=== PATIENT | male | born 1995 | race American Indian/Alaskan Native ===

== ENCOUNTER 2025-03-22 18:24 | Emergency (ER) | payer BC ==
[~2025-03-22] VITALS: Ht 193 cm; Wt 85.2 kg
[2025-03-22 19:39] LABS: BASOPHILS 0.6 % (0.2-1.2); EOSINOPHILS 2.9 % (0.8-7.0); LYMPHOCYTES 20.9 % (21.8-53.1); MCH 28.6 PG (25.7-32.2); MCHC 33.1 g/dL (32.3-36.5); MCV 86.4 fL (79.0-92.2); MONOCYTES 10.7 % (5.3-12.2); NEUTROPHILS 64.7 % (34.0-67.9); RBC 5.00 M/uL (4.63-6.08)
[2025-03-22 20:00] LABS: ALT (SGPT) 20.0 U/L (14-59); AST (SGOT) 17.0 U/L (15-37); GLOMERULAR FILTRATION RATE,EST 108.0 mL/min (>60); PROTEIN, TOTAL 8.3 g/dL (6.4-8.2); UREA NITROGEN 9.0 mg/dL (7-18)
[2025-03-22 21:25] LABS: LACTIC ACID, BLOOD 0.7 mmol/L (0.4-2.0)
[2025-03-22] MEDS ORDERED: CEPHALEXIN500 M1 PO (21:55)
[2025-03-22] MEDS ORDERED: CEPHALEXIN MONOHYDRATE 500 MG HOME.PACK PO ONE (22:00)
[2025-03-22] MEDS ORDERED: HYDROCODONE BIT/ACETAMINOPHEN 5/325 MG 1 TAB HOME.PACK PO ONE (22:00)
[2025-03-22 22:10] VITALS: BP 99/50
== END 2025-03-22 22:12 | disposition home or self-care (01) ==
LOC: ED 18:24
PROVIDERS: Internal Medicine
DX: L03.116 Cellulitis of left lower limb (principal)
CPT/HCPCS: 36415; 80053; 83605; 85025; 87040; 96365; 99283-25; A9270; J0696

== ENCOUNTER 2025-06-05 10:58 | Day surgery (SDC) | payer BC ==
[~2025-06-05] VITALS: Ht 193 cm; Wt 86.0 kg
[~2025-06-05 10:58] MED LIST: CEPHALEXIN500 M1 PO; IBLOOD GLUCOSE TEST STRIP 1 EA TEST VI PRN; LACTATED RINGER'S 1,000 ML IV SCH; LIDOCAINE HCL 1% 5 ML SDV INJ ONE
[2025-06-05 11:10] VITALS: BP 132/70
[2025-06-05] MEDS ORDERED: LIDOCAINE HCL 2% 5 ML SDV ONE (11:26)
--- NOTE | 2025-06-05 13:07 | NUR ---
06/05/25 1307 Muade Gomez 1302-PATIENT ARRIVED TO PACU ON 2L NC RR EVEN NONAROUSABLE LAYING LEFT LATERAL ABDOMEN SOFT IVF INFUSING. SINUS BRADYCARDIA HR 50'S
[2025-06-05 13:52] VITALS: BP 122/73
== END 2025-06-05 14:00 | disposition home or self-care (01) ==
LOC: DS 10:58 → OPS 10:58 → DS 12:30 → OPS 12:30
PROVIDERS: ATTEND Surgery
PROC: 0DBL8ZX Excision of Transverse Colon, Via Natural or Artificial Opening Endoscopic, Diagnostic (ICD-10-PCS; 2025-06-05)
PROC: 0DB48ZX Excision of Esophagogastric Junction, Via Natural or Artificial Opening Endoscopic, Diagnostic (ICD-10-PCS; 2025-06-05)
PROC: 0DB68ZX Excision of Stomach, Via Natural or Artificial Opening Endoscopic, Diagnostic (ICD-10-PCS; 2025-06-05)
PROC: 0DDM8ZX Extraction of Descending Colon, Via Natural or Artificial Opening Endoscopic, Diagnostic (ICD-10-PCS; principal; 2025-06-05 12:30)
PROC: 0DBK8ZX Excision of Ascending Colon, Via Natural or Artificial Opening Endoscopic, Diagnostic (ICD-10-PCS; 2025-06-05 12:30)
DX: K29.51 Unspecified chronic gastritis with bleeding (principal); D12.0 Benign neoplasm of cecum; K63.5 Polyp of colon; K64.8 Other hemorrhoids; K21.9 Gastro-esophageal reflux disease without esophagitis
CPT/HCPCS: 00813; J2003; J2704; J7121